=== PATIENT | female | born 1955 | race Caucasian/White ===

== ENCOUNTER → 2016-09-22 | Outpatient (CLI) | payer BC ==
[~2016-09-22] MED LIST: ATIVAN 0.50.5 MG/TAB PO; ATIVAN0.5 MG PO; CHILD'S CHEW1 CTB PO; CITRACAL PETITE1 TAB PO; COLACE 100100 MG/CAP PO; GOOD SENSE ASPI81 M1 PO; LEVAQUIN 5500 MG/TA1 PO; LISINOPRIL10 MG PO; LOVENOX60 MG/0.6 SC; MACRODANTIN50 MG/CA1 PO; MULTIPLE VITAMI1 TAB PO; NORCO 325 MG-51 TA1 PO; PROTONIX40 MG PO; TRIAMCINOLONE0.1% TOP; VALTREX1 GM PO; VERAPAMIL240 MG/TAB PO; VITAMIN C PO; WARFARIN SOD5 MG PO; ZOCOR5 MG PO; ZOFRAN ODT8 MG PO
== END ==
LOC: LAB 07:03
DX: Z51.81 Encounter for therapeutic drug level monitoring (principal); Z79.01 Long term (current) use of anticoagulants; I26.99 Other pulmonary embolism without acute cor pulmonale

== ENCOUNTER → 2016-10-20 | Outpatient (CLI) | payer BC | LOC: LAB 07:05 | DX: I26.99 Other pulmonary embolism without acute cor pulmonale (principal) ==

== ENCOUNTER → 2016-11-17 | Outpatient (CLI) | payer BC | LOC: LAB 07:09 | DX: Z51.81 Encounter for therapeutic drug level monitoring (principal); Z79.01 Long term (current) use of anticoagulants; I26.99 Other pulmonary embolism without acute cor pulmonale ==

== ENCOUNTER → 2016-12-15 | Outpatient (CLI) | payer BC ==
[2014-10-18 19:10] VITALS: BP 91/53
== END ==
LOC: LAB 06:58
DX: Z51.81 Encounter for therapeutic drug level monitoring (principal); Z79.01 Long term (current) use of anticoagulants; I26.99 Other pulmonary embolism without acute cor pulmonale

== ENCOUNTER → 2016-12-29 | Outpatient (CLI) | payer BC ==
[2014-10-18 19:10] VITALS: BP 91/53
== END ==
LOC: LAB 07:01
DX: Z51.81 Encounter for therapeutic drug level monitoring (principal); Z79.01 Long term (current) use of anticoagulants; I26.99 Other pulmonary embolism without acute cor pulmonale

== ENCOUNTER → 2017-01-12 | Outpatient (CLI) | payer BC ==
[2014-10-18 19:10] VITALS: BP 91/53
== END ==
LOC: LAB 07:25
DX: Z51.81 Encounter for therapeutic drug level monitoring (principal); Z79.01 Long term (current) use of anticoagulants; I26.99 Other pulmonary embolism without acute cor pulmonale

== ENCOUNTER → 2017-02-09 | Outpatient (CLI) | payer BC ==
[2014-10-18 19:10] VITALS: BP 91/53
== END ==
LOC: LAB 07:14
DX: Z51.81 Encounter for therapeutic drug level monitoring (principal); Z79.01 Long term (current) use of anticoagulants; I26.99 Other pulmonary embolism without acute cor pulmonale

== ENCOUNTER → 2017-03-09 | Outpatient (CLI) | payer BC ==
[2014-10-18 19:10] VITALS: BP 91/53
== END ==
LOC: LAB 07:11
DX: Z51.81 Encounter for therapeutic drug level monitoring (principal); Z79.01 Long term (current) use of anticoagulants; I26.99 Other pulmonary embolism without acute cor pulmonale

== ENCOUNTER → 2017-04-13 | Outpatient (CLI) | payer BC ==
[2014-10-18 19:10] VITALS: BP 91/53
== END ==
LOC: RAD 07:23 → LAB 07:23
DX: Z51.81 Encounter for therapeutic drug level monitoring (principal); Z79.01 Long term (current) use of anticoagulants; I26.99 Other pulmonary embolism without acute cor pulmonale; R07.81 Pleurodynia; W10.9XXA Fall (on) (from) unspecified stairs and steps, initial encounter

== ENCOUNTER → 2017-05-11 | Outpatient (CLI) | payer BC ==
[2014-10-18 19:10] VITALS: BP 91/53
== END ==
LOC: LAB 07:05
DX: I26.99 Other pulmonary embolism without acute cor pulmonale (principal)

== ENCOUNTER → 2017-06-15 | Outpatient (CLI) | payer BC ==
[2014-10-18 19:10] VITALS: BP 91/53
== END ==
LOC: LAB 07:07
DX: I26.99 Other pulmonary embolism without acute cor pulmonale (principal)

== ENCOUNTER → 2017-07-13 | Outpatient (CLI) | payer BC ==
[2014-10-18 19:10] VITALS: BP 91/53
[2017-07-13 07:29] LABS: PROTHROMBIN TIME 25.6 SECONDS (9.0-12.0)
== END ==
LOC: LAB 07:00
PROVIDERS: Family Medicine
DX: I26.99 Other pulmonary embolism without acute cor pulmonale (principal)

== ENCOUNTER → 2017-08-10 | Outpatient (CLI) | payer BC ==
[2014-10-18 19:10] VITALS: BP 91/53
[2017-08-10 07:24] LABS: PROTHROMBIN TIME 23.2 SECONDS (9.0-12.0)
== END ==
LOC: LAB 07:04
PROVIDERS: Family Medicine
DX: I26.99 Other pulmonary embolism without acute cor pulmonale (principal); Z91.040 Latex allergy status

== ENCOUNTER → 2017-09-07 | Outpatient (CLI) | payer BC ==
[2014-10-18 19:10] VITALS: BP 91/53
[2017-09-07 07:45] LABS: PROTHROMBIN TIME 23.3 SECONDS (9.0-12.0)
== END ==
LOC: LAB 07:04
PROVIDERS: Family Medicine
DX: I26.99 Other pulmonary embolism without acute cor pulmonale (principal)

== ENCOUNTER → 2017-10-12 | Outpatient (CLI) | payer BC ==
[2014-10-18 19:10] VITALS: BP 91/53
[2017-10-12 08:52] LABS: PROTHROMBIN TIME 26.3 SECONDS (9.0-12.0)
== END ==
LOC: LAB 07:03
PROVIDERS: Family Medicine
DX: I26.99 Other pulmonary embolism without acute cor pulmonale (principal)

== ENCOUNTER → 2017-11-09 | Outpatient (CLI) | payer BC ==
[2014-10-18 19:10] VITALS: BP 91/53
== END ==
LOC: LAB 07:15
PROVIDERS: Family Medicine
DX: I26.99 Other pulmonary embolism without acute cor pulmonale (principal)

== ENCOUNTER → 2017-12-09 | Outpatient (CLI) | payer BC ==
[2014-10-18 19:10] VITALS: BP 91/53
== END ==
LOC: LAB 07:08
PROVIDERS: Family Medicine
DX: I26.99 Other pulmonary embolism without acute cor pulmonale (principal)

== ENCOUNTER → 2018-01-04 | Outpatient (CLI) | payer BC ==
[2014-10-18 19:10] VITALS: BP 91/53
[2018-01-04 07:19] LABS: PROTHROMBIN TIME 21.1 SECONDS (9.0-12.0)
== END ==
LOC: LAB 06:55
PROVIDERS: Family Medicine
DX: I26.99 Other pulmonary embolism without acute cor pulmonale (principal)

== ENCOUNTER → 2018-02-01 | Outpatient (CLI) | payer BC ==
[2014-10-18 19:10] VITALS: BP 91/53
[2018-02-01 07:18] LABS: PROTHROMBIN TIME 21.8 SECONDS (9.0-12.0)
== END ==
LOC: LAB 06:57
PROVIDERS: Family Medicine
DX: I26.99 Other pulmonary embolism without acute cor pulmonale (principal)

== ENCOUNTER → 2018-03-08 | Outpatient (CLI) | payer BC ==
[2014-10-18 19:10] VITALS: BP 91/53
[2018-03-08 07:32] LABS: PROTHROMBIN TIME 22.4 SECONDS (9.0-12.0)
== END ==
LOC: LAB 06:56
PROVIDERS: Family Medicine
DX: I26.99 Other pulmonary embolism without acute cor pulmonale (principal)

== ENCOUNTER → 2018-04-05 | Outpatient (CLI) | payer BC ==
[2014-10-18 19:10] VITALS: BP 91/53
[2018-04-05 08:20] LABS: PROTHROMBIN TIME 28.6 SECONDS (9.0-12.0)
== END ==
LOC: LAB 07:07
PROVIDERS: Family Medicine
DX: I26.99 Other pulmonary embolism without acute cor pulmonale (principal)

== ENCOUNTER → 2018-06-07 | Outpatient (CLI) | payer BC ==
[2014-10-18 19:10] VITALS: BP 91/53
[2018-06-07 10:16] LABS: PROTHROMBIN TIME 27.6 SECONDS (9.0-12.0)
== END ==
LOC: LAB 07:00 → EDSTATUS 07:02
PROVIDERS: Family Medicine
DX: Z09 Encounter for follow-up examination after completed treatment for conditions other than malignant neoplasm (principal); Z86.711 Personal history of pulmonary embolism

== ENCOUNTER → 2018-06-30 | Outpatient (CLI) | payer BC ==
[2014-10-18 19:10] VITALS: BP 91/53
[2018-06-30 07:50] LABS: PROTHROMBIN TIME 14.6 SECONDS (9.0-12.0)
== END ==
LOC: LAB 07:03
PROVIDERS: Family Medicine
DX: Z86.711 Personal history of pulmonary embolism (principal)

== ENCOUNTER → 2018-07-05 | Outpatient (CLI) | payer BC ==
[2014-10-18 19:10] VITALS: BP 91/53
[2018-07-05 08:08] LABS: PROTHROMBIN TIME 23.5 SECONDS (9.0-12.0)
== END ==
LOC: LAB 07:04
PROVIDERS: Family Medicine
DX: Z09 Encounter for follow-up examination after completed treatment for conditions other than malignant neoplasm (principal); Z86.711 Personal history of pulmonary embolism

== ENCOUNTER → 2018-08-02 | Outpatient (CLI) | payer BC ==
[2014-10-18 19:10] VITALS: BP 91/53
== END ==
LOC: LAB 06:59
PROVIDERS: Family Medicine
DX: Z86.711 Personal history of pulmonary embolism (principal)

== ENCOUNTER → 2018-09-06 | Outpatient (CLI) | payer BC ==
[2014-10-18 19:10] VITALS: BP 91/53
[2018-09-06 07:53] LABS: PROTHROMBIN TIME 29.8 SECONDS (9.0-12.0)
== END ==
LOC: LAB 07:05 → EDSTATUS 07:06
PROVIDERS: Family Medicine
DX: Z86.711 Personal history of pulmonary embolism (principal)

== ENCOUNTER → 2018-10-06 | Outpatient (CLI) | payer BC ==
[2014-10-18 19:10] VITALS: BP 91/53
== END ==
LOC: LAB 07:05
PROVIDERS: Family Medicine
DX: Z86.711 Personal history of pulmonary embolism (principal)

== ENCOUNTER → 2018-10-13 | Outpatient (CLI) | payer BC ==
[2014-10-18 19:10] VITALS: BP 91/53
[2018-10-13 07:34] LABS: PROTHROMBIN TIME 24.1 SECONDS (9.0-12.0)
== END ==
LOC: LAB 07:05
PROVIDERS: Family Medicine
DX: Z09 Encounter for follow-up examination after completed treatment for conditions other than malignant neoplasm (principal); Z86.711 Personal history of pulmonary embolism

== ENCOUNTER → 2018-10-27 | Outpatient (CLI) | payer BC ==
[2014-10-18 19:10] VITALS: BP 91/53
[2018-10-27 09:28] LABS: PROTHROMBIN TIME 33.7 SECONDS (9.0-12.0)
== END ==
LOC: LAB 08:20
PROVIDERS: Family Medicine
DX: Z86.711 Personal history of pulmonary embolism (principal)

== ENCOUNTER → 2018-11-03 | Outpatient (CLI) | payer BC ==
[2014-10-18 19:10] VITALS: BP 91/53
[2018-11-03 08:50] LABS: PROTHROMBIN TIME 42.2 SECONDS (9.0-12.0)
== END ==
LOC: LAB 07:48
PROVIDERS: Family Medicine
DX: Z86.711 Personal history of pulmonary embolism (principal); E78.1 Pure hyperglyceridemia

== ENCOUNTER → 2018-11-17 | Outpatient (CLI) | payer BC ==
[2014-10-18 19:10] VITALS: BP 91/53
[2018-11-17 08:26] LABS: PROTHROMBIN TIME 26.2 SECONDS (9.0-12.0)
== END ==
LOC: LAB 07:31
PROVIDERS: Family Medicine
DX: E78.1 Pure hyperglyceridemia (principal); Z86.711 Personal history of pulmonary embolism

== ENCOUNTER → 2018-12-15 | Outpatient (CLI) | payer BC ==
[2014-10-18 19:10] VITALS: BP 91/53
[2018-12-15 07:27] LABS: PROTHROMBIN TIME 23.1 SECONDS (9.0-12.0)
== END ==
LOC: LAB 07:07
PROVIDERS: Family Medicine
DX: Z86.711 Personal history of pulmonary embolism (principal)

== ENCOUNTER → 2019-02-07 | Outpatient (CLI) | payer BC ==
[2014-10-18 19:10] VITALS: BP 91/53
[2019-02-07 09:14] LABS: PROTHROMBIN TIME 25.6 SECONDS (9.0-12.0)
== END ==
LOC: LAB 07:03
PROVIDERS: Family Medicine
DX: E78.00 Pure hypercholesterolemia, unspecified (principal); Z86.711 Personal history of pulmonary embolism

== ENCOUNTER → 2019-03-14 | Outpatient (CLI) | payer BC ==
[2014-10-18 19:10] VITALS: BP 91/53
[2019-03-14 08:43] LABS: PROTHROMBIN TIME 47.2 SECONDS (9.0-12.0)
== END ==
LOC: LAB 07:07
PROVIDERS: Family Medicine
DX: Z86.711 Personal history of pulmonary embolism (principal)

== ENCOUNTER → 2019-03-25 | Outpatient (CLI) | payer BC ==
[2014-10-18 19:10] VITALS: BP 91/53
[2019-03-25 07:53] LABS: PROTHROMBIN TIME 18.4 SECONDS (9.0-12.0)
== END ==
LOC: LAB 07:08
PROVIDERS: Family Medicine
DX: E78.00 Pure hypercholesterolemia, unspecified (principal)

== ENCOUNTER → 2019-04-06 | Outpatient (CLI) | payer BC ==
[2014-10-18 19:10] VITALS: BP 91/53
[2019-04-06 07:25] LABS: PROTHROMBIN TIME 27.4 SECONDS (9.0-12.0)
== END ==
LOC: LAB 06:59
PROVIDERS: Family Medicine
DX: E78.1 Pure hyperglyceridemia (principal); Z86.711 Personal history of pulmonary embolism

== ENCOUNTER → 2019-05-04 | Outpatient (CLI) | payer BC ==
[2014-10-18 19:10] VITALS: BP 91/53
[2019-05-04 08:42] LABS: PROTHROMBIN TIME 20.7 SECONDS (9.0-12.0)
== END ==
LOC: LAB 07:06
PROVIDERS: Family Medicine
DX: E78.1 Pure hyperglyceridemia (principal); Z86.711 Personal history of pulmonary embolism

== ENCOUNTER → 2019-06-06 | Outpatient (CLI) | payer BC ==
[2014-10-18 19:10] VITALS: BP 91/53
[2019-06-06 08:00] LABS: PROTHROMBIN TIME 18.4 SECONDS (9.0-12.0)
== END ==
LOC: LAB 07:06
PROVIDERS: Family Medicine
DX: Z86.711 Personal history of pulmonary embolism (principal)

== ENCOUNTER → 2019-06-20 | Outpatient (CLI) | payer BC ==
[2014-10-18 19:10] VITALS: BP 91/53
[2019-06-20 07:30] LABS: PROTHROMBIN TIME 19.9 SECONDS (9.0-12.0)
== END ==
LOC: LAB 07:13
PROVIDERS: Family Medicine
DX: Z86.711 Personal history of pulmonary embolism (principal)

== ENCOUNTER → 2019-07-04 | Outpatient (CLI) | payer BC ==
[2014-10-18 19:10] VITALS: BP 91/53
[2019-07-04 10:17] LABS: PROTHROMBIN TIME 17.3 SECONDS (9.0-12.0)
== END ==
LOC: LAB 09:57
PROVIDERS: Family Medicine
DX: Z86.711 Personal history of pulmonary embolism (principal)

== ENCOUNTER → 2019-07-19 | Outpatient (CLI) | payer BC ==
[2014-10-18 19:10] VITALS: BP 91/53
[2019-07-19 07:31] LABS: PROTHROMBIN TIME 20.5 SECONDS (9.0-12.0)
== END ==
LOC: LAB 07:02
PROVIDERS: Family Medicine
DX: Z86.711 Personal history of pulmonary embolism (principal)

== ENCOUNTER → 2019-07-25 | Outpatient (CLI) | payer BC ==
[2014-10-18 19:10] VITALS: BP 91/53
== END ==
LOC: RAD 06:52
DX: I10 Essential (primary) hypertension (principal); I65.29 Occlusion and stenosis of unspecified carotid artery

== ENCOUNTER → 2019-08-17 | Outpatient (CLI) | payer BC ==
[2014-10-18 19:10] VITALS: BP 91/53
[2019-08-17 07:31] LABS: PROTHROMBIN TIME 20.3 SECONDS (9.0-12.0)
== END ==
LOC: LAB 07:00
PROVIDERS: Family Medicine
DX: Z86.711 Personal history of pulmonary embolism (principal)

== ENCOUNTER → 2019-09-14 | Outpatient (CLI) | payer BC ==
[2014-10-18 19:10] VITALS: BP 91/53
[2019-09-14 08:29] LABS: PROTHROMBIN TIME 25.5 SECONDS (9.0-12.0)
== END ==
LOC: LAB 07:00
PROVIDERS: Family Medicine
DX: Z86.711 Personal history of pulmonary embolism (principal)

== ENCOUNTER → 2019-10-10 | Outpatient (CLI) | payer BC ==
[2014-10-18 19:10] VITALS: BP 91/53
== END ==
LOC: LAB 07:01
PROVIDERS: Family Medicine
DX: Z86.711 Personal history of pulmonary embolism (principal)

== ENCOUNTER → 2019-11-07 | Outpatient (CLI) | payer BC ==
[2014-10-18 19:10] VITALS: BP 91/53
[2019-11-07 07:49] LABS: PROTHROMBIN TIME 24.1 SECONDS (9.0-12.0)
== END ==
LOC: LAB 07:04
PROVIDERS: Family Medicine
DX: Z86.711 Personal history of pulmonary embolism (principal)

== ENCOUNTER → 2019-12-05 | Outpatient (CLI) | payer BC ==
[2014-10-18 19:10] VITALS: BP 91/53
[2019-12-05 08:41] LABS: PROTHROMBIN TIME 26.1 SECONDS (9.0-12.0)
== END ==
LOC: LAB 07:40
PROVIDERS: Family Medicine
DX: Z86.711 Personal history of pulmonary embolism (principal)

== ENCOUNTER → 2020-01-02 | Outpatient (CLI) | payer BC ==
[2014-10-18 19:10] VITALS: BP 91/53
[2020-01-02 07:52] LABS: PROTHROMBIN TIME 33.1 SECONDS (9.0-12.0)
== END ==
LOC: LAB 07:03
PROVIDERS: Family Medicine
DX: Z86.711 Personal history of pulmonary embolism (principal)

== ENCOUNTER → 2020-01-16 | Outpatient (CLI) | payer BC ==
[2014-10-18 19:10] VITALS: BP 91/53
[2020-01-16 07:45] LABS: PROTHROMBIN TIME 20.6 SECONDS (9.0-12.0)
== END ==
LOC: LAB 06:45
PROVIDERS: Family Medicine
DX: Z86.711 Personal history of pulmonary embolism (principal)

== ENCOUNTER → 2020-02-13 | Outpatient (CLI) | payer BC ==
[2014-10-18 19:10] VITALS: BP 91/53
[2020-02-13 07:48] LABS: PROTHROMBIN TIME 22.1 SECONDS (9.0-12.0)
== END ==
LOC: LAB 07:05
PROVIDERS: Family Medicine
DX: Z86.711 Personal history of pulmonary embolism (principal)

== ENCOUNTER → 2020-03-12 | Outpatient (CLI) | payer BC ==
[2014-10-18 19:10] VITALS: BP 91/53
[2020-03-12 10:07] LABS: PROTHROMBIN TIME 17.9 SECONDS (9.0-12.0)
== END ==
LOC: LAB 07:43
PROVIDERS: Family Medicine
DX: Z86.711 Personal history of pulmonary embolism (principal)

== ENCOUNTER → 2020-03-26 | Outpatient (CLI) | payer BC ==
[2014-10-18 19:10] VITALS: BP 91/53
[2020-03-26 07:55] LABS: PROTHROMBIN TIME 20.5 SECONDS (9.0-12.0)
== END ==
LOC: LAB 07:07
PROVIDERS: Family Medicine
DX: Z86.711 Personal history of pulmonary embolism (principal)

== ENCOUNTER → 2020-04-12 | Outpatient (CLI) | payer BC ==
[2014-10-18 19:10] VITALS: BP 91/53
== END ==
LOC: RAD 09:39 → MAMMO 10:00 → RAD 10:00
DX: M81.0 Age-related osteoporosis without current pathological fracture (principal); S52.125D Nondisplaced fracture of head of left radius, subsequent encounter for closed fracture with routine healing; Z78.0 Asymptomatic menopausal state

== ENCOUNTER → 2020-04-23 | Outpatient (CLI) | payer BC ==
[2014-10-18 19:10] VITALS: BP 91/53
[2020-04-23 08:13] LABS: PROTHROMBIN TIME 22.1 SECONDS (9.0-12.0)
== END ==
LOC: LAB 07:16
PROVIDERS: Family Medicine
DX: Z86.711 Personal history of pulmonary embolism (principal)

== ENCOUNTER → 2020-05-21 | Outpatient (CLI) | payer BC ==
[2014-10-18 19:10] VITALS: BP 91/53
[2020-05-21 07:26] LABS: PROTHROMBIN TIME 17.7 SECONDS (9.0-12.0)
== END ==
LOC: LAB 07:00
PROVIDERS: Family Medicine
DX: I26.99 Other pulmonary embolism without acute cor pulmonale (principal)

== ENCOUNTER → 2020-06-04 | Outpatient (CLI) | payer BC ==
[2014-10-18 19:10] VITALS: BP 91/53
[2020-06-04 09:06] LABS: PROTHROMBIN TIME 21.8 SECONDS (9.0-12.0)
== END ==
LOC: LAB 07:02
PROVIDERS: Family Medicine
DX: I26.99 Other pulmonary embolism without acute cor pulmonale (principal)

== ENCOUNTER 2020-06-25 22:07 | Emergency (ER) | payer BC ==
[~2020-06-25] VITALS: Ht 170.2 cm; Wt 59.9 kg
[2020-06-25] MEDS ORDERED: ZETIA10 M1 PO (22:21)
[2020-06-25] MEDS ORDERED: OMEGA 3-6-9 CO400 MG PO (22:22)
[2020-06-25 22:34] LABS: HEMATOCRIT 40.1 % (37.0-47.0); HEMOGLOBIN 13.5 g/dL (12.5-16.0); MEAN CELL VOLUME 87 fl (78-100); MEAN CORPUSCULAR HEMOGLOBIN 29 pg (27-31); MEAN CORPUSCULAR HGB CONC 34 g/dL (33-37); MEAN PLATELET VOLUME 9.1 fl (7.4-10.4); PLATELET COUNT 224 K/mm3 (130-400); RED BLOOD COUNT 4.59 M/mm3 (4.10-5.30); RED CELL DISTRIBUTION WIDTH 12.7 % (11.5-14.5); WHITE BLOOD COUNT 4.2 K/mm3 (4.8-10.8)
[2020-06-25 22:51] LABS: ALBUMIN 3.9 g/dL (3.4-4.8); POTASSIUM 3.9 mmol/L (3.5-5.1)
[2020-06-25 22:52] LABS: CALCIUM 8.7 mg/dL (8.3-10.5)
[2020-06-25 22:53] LABS: TOTAL PROTEIN 7.2 g/dL (6.2-8.1)
[2020-06-25 22:55] LABS: TOTAL BILIRUBIN 0.4 mg/dL (0.2-1.2)
[2020-06-25 23:02] LABS: PARTIAL THROMBOPLASTIN TIME 33.8 SECONDS (21.0-32.0); PROTHROMBIN TIME 23.9 SECONDS (9.0-12.0)
[2020-06-25 23:14] LABS: LYMPHOCYTE 4 % (20-51); MONOCYTE 14 % (3-10); NEUTROPHILS 77 % (42-75)
[2020-06-26] MEDS ORDERED: NORCO 325 MG-51 TA1 PO (01:04)
[2020-06-26] MEDS ORDERED: ZOFRAN ODT4 MG PO (01:04)
[2020-06-26 01:52] LABS: URINE WBC 0 /hpf (0-3)
[2020-06-26 01:59] LABS: URINE APPEARANCE HAZY; URINE BILIRUBIN NEGATIVE (NEGATIVE); URINE BLOOD 250 ery/uL (NEGATIVE); URINE COLOR YELLOW; URINE GLUCOSE NEGATIVE (NEGATIVE); URINE KETONE 1+ (NEGATIVE); URINE LEUKOCYTE ESTERASE NEGATIVE (NEGATIVE); URINE NITRATE NEGATIVE (NEGATIVE); URINE PROTEIN(semi-quant) TRACE mg/dL (NEGATIVE); URINE UROBILINOGEN NORMAL (NORMAL)
[2020-06-26 03:02] VITALS: BP 137/78
== END 2020-06-26 03:02 | disposition home or self-care (01) ==
LOC: ED 22:07
PROVIDERS: Nurse Practitioner
DX: U07.1 COVID-19 (principal); R11.2 Nausea with vomiting, unspecified; I12.9 Hypertensive chronic kidney disease with stage 1 through stage 4 chronic kidney disease, or unspecified chronic kidney disease; N18.31 Chronic kidney disease, stage 3a; Z86.711 Personal history of pulmonary embolism; Z86.79 Personal history of other diseases of the circulatory system; Z90.89 Acquired absence of other organs; Z91.040 Latex allergy status; Z79.01 Long term (current) use of anticoagulants
CPT/HCPCS: J2405; J2550; J3010; J7030

== ENCOUNTER → 2020-07-06 | Outpatient (CLI) | payer BC ==
[2020-07-03 23:27] VITALS: BP 140/73
[~2020-07-06] MED LIST changes: +ALENDRONATE SOD35 M1 PO; -CITRACAL PETITE1 TAB PO; -COLACE 100100 MG/CAP PO; +COLACE100 M1 PO; -LISINOPRIL10 MG PO; +OMEGA 3-6-9 CO400 MG PO; +ONDANSETRON ODT8 MG PO; +PHENERGAN 25 TA25 MG PO; +VERAPAMIL240 MG PO; +VITAMIN D375 MCG PO; -WARFARIN SOD5 MG PO; +WARFARIN SODIUM4 MG PO; +ZESTRIL20 M1 PO; +ZETIA10 M1 PO; +ZOFRAN ODT4 MG PO
[2020-07-06 10:05] LABS: URINE COLOR YELLOW
[2020-07-06 10:06] LABS: URINE APPEARANCE CLOUDY; URINE BILIRUBIN NEGATIVE (NEGATIVE); URINE BLOOD 250 ery/uL (NEGATIVE); URINE GLUCOSE NEGATIVE (NEGATIVE); URINE KETONE NEGATIVE (NEGATIVE); URINE LEUKOCYTE ESTERASE 2+ (NEGATIVE); URINE NITRATE POSITIVE (NEGATIVE); URINE PROTEIN(semi-quant) TRACE mg/dL (NEGATIVE); URINE UROBILINOGEN NORMAL (NORMAL); URINE WBC >50 /hpf (0-3)
[2020-07-06 10:07] LABS: URINE MUCUS PRESENT (NOT PRESENT)
== END ==
LOC: LAB 08:48
PROVIDERS: Family Medicine
DX: R30.9 Painful micturition, unspecified (principal); R35.0 Frequency of micturition

== ENCOUNTER → 2020-07-09 | Outpatient (CLI) | payer BC ==
[2020-07-03 23:27] VITALS: BP 140/73
[2020-07-09 08:50] LABS: PROTHROMBIN TIME > 120.0 SECONDS (9.0-12.0)
== END ==
LOC: LAB 07:13
PROVIDERS: Family Medicine
DX: E87.1 Hypo-osmolality and hyponatremia (principal); I12.9 Hypertensive chronic kidney disease with stage 1 through stage 4 chronic kidney disease, or unspecified chronic kidney disease; N18.2 Chronic kidney disease, stage 2 (mild)

== ENCOUNTER → 2020-07-10 | Outpatient (CLI) | payer BC ==
[2020-07-03 23:27] VITALS: BP 140/73
== END ==
LOC: LAB 07:53
PROVIDERS: Family Medicine
DX: I26.99 Other pulmonary embolism without acute cor pulmonale (principal)

== ENCOUNTER → 2020-07-11 | Outpatient (CLI) | payer BC ==
[2020-07-03 23:27] VITALS: BP 140/73
== END ==
LOC: RAD 16:01
DX: K56.41 Fecal impaction (principal)

== ENCOUNTER → 2020-07-13 | Outpatient (CLI) | payer BC ==
[2020-07-03 23:27] VITALS: BP 140/73
[2020-07-13 07:58] LABS: ALBUMIN 4.1 g/dL (3.4-4.8)
[2020-07-13 08:01] LABS: TOTAL PROTEIN 7.3 g/dL (6.2-8.1)
[2020-07-13 08:03] LABS: TOTAL BILIRUBIN 0.6 mg/dL (0.2-1.2)
[2020-07-13 08:06] LABS: DIRECT BILIRUBIN 0.3 mg/dL (0.0-0.5)
== END ==
LOC: LAB 07:04
PROVIDERS: Family Medicine
DX: E78.00 Pure hypercholesterolemia, unspecified (principal)

== ENCOUNTER 2020-07-14 12:50 | Emergency (ER) | payer BC ==
[~2020-07-14] VITALS: Ht 170.2 cm; Wt 56.4 kg
[2020-07-14 14:00] LABS: HEMATOCRIT 38.2 % (37.0-47.0); HEMOGLOBIN 13.4 g/dL (12.5-16.0); MEAN CELL VOLUME 83 fl (78-100); MEAN CORPUSCULAR HEMOGLOBIN 29 pg (27-31); MEAN CORPUSCULAR HGB CONC 35 g/dL (33-37); MEAN PLATELET VOLUME 8.4 fl (7.4-10.4); MONO # 0.8 (0.20-0.80); NEU # 5.7 (1.40-6.50); PLATELET COUNT 440 K/mm3 (130-400); RED CELL DISTRIBUTION WIDTH 12.1 % (11.5-14.5); WHITE BLOOD COUNT 7.6 K/mm3 (4.8-10.8)
[2020-07-14 14:22] LABS: PROTHROMBIN TIME 17.2 SECONDS (9.0-12.0)
[2020-07-14 14:23] LABS: POTASSIUM 4.5 mmol/L (3.5-5.1)
[2020-07-14 14:24] LABS: CALCIUM 10.6 mg/dL (8.3-10.5)
[2020-07-14 14:49] LABS: URINE APPEARANCE CLEAR; URINE BILIRUBIN NEGATIVE (NEGATIVE); URINE COLOR STRAW; URINE GLUCOSE NEGATIVE (NEGATIVE); URINE KETONE NEGATIVE (NEGATIVE); URINE PROTEIN(semi-quant) NEGATIVE (NEGATIVE); URINE UROBILINOGEN NORMAL (NORMAL)
[2020-07-14 14:50] LABS: URINE BLOOD 50 ery/uL (NEGATIVE); URINE LEUKOCYTE ESTERASE NEGATIVE (NEGATIVE); URINE NITRATE NEGATIVE (NEGATIVE); URINE WBC 0-1 /hpf (0-3)
[2020-07-14 17:03] VITALS: BP 160/89
== END 2020-07-14 17:26 | disposition home or self-care (01) ==
LOC: ED 12:50
PROVIDERS: Family Medicine
DX: R00.0 Tachycardia, unspecified (principal); E86.9 Volume depletion, unspecified; Z86.718 Personal history of other venous thrombosis and embolism; Z86.711 Personal history of pulmonary embolism; Z86.79 Personal history of other diseases of the circulatory system; Z86.19 Personal history of other infectious and parasitic diseases; Z88.2 Allergy status to sulfonamides; Z79.01 Long term (current) use of anticoagulants
CPT/HCPCS: J7030

== ENCOUNTER → 2020-07-23 | Outpatient (CLI) | payer BC ==
[2020-07-14 17:03] VITALS: BP 160/89
[2020-07-23 13:02] LABS: POTASSIUM 4.4 mmol/L (3.5-5.1)
[2020-07-23 13:03] LABS: CALCIUM 10.7 mg/dL (8.3-10.5)
[2020-07-23 13:07] LABS: PROTHROMBIN TIME 15.7 SECONDS (9.0-12.0)
== END ==
LOC: LAB 11:20 → RAD 11:20
PROVIDERS: Family Medicine
DX: K56.41 Fecal impaction (principal); E87.1 Hypo-osmolality and hyponatremia; Z86.711 Personal history of pulmonary embolism

== ENCOUNTER → 2020-07-27 | Outpatient (CLI) | payer BC ==
[2020-07-14 17:03] VITALS: BP 160/89
[2020-07-27 07:40] LABS: PROTHROMBIN TIME 15.3 SECONDS (9.0-12.0)
== END ==
LOC: LAB 06:54
PROVIDERS: Family Medicine
DX: Z86.711 Personal history of pulmonary embolism (principal)

== ENCOUNTER → 2020-08-02 | Outpatient (CLI) | payer BC ==
[2020-07-14 17:03] VITALS: BP 160/89
[2020-08-02 07:30] LABS: PROTHROMBIN TIME 21.9 SECONDS (9.0-12.0)
== END ==
LOC: LAB 07:01
PROVIDERS: Family Medicine
DX: Z86.711 Personal history of pulmonary embolism (principal)

== ENCOUNTER → 2020-08-09 | Outpatient (CLI) | payer BC ==
[2020-07-14 17:03] VITALS: BP 160/89
[2020-08-09 08:14] LABS: PROTHROMBIN TIME 19.2 SECONDS (9.0-12.0)
== END ==
LOC: LAB 06:46
PROVIDERS: Family Medicine
DX: Z86.711 Personal history of pulmonary embolism (principal)

== ENCOUNTER → 2020-08-23 | Outpatient (CLI) | payer BC ==
[2020-08-23 07:32] LABS: PROTHROMBIN TIME 18.4 SECONDS (9.0-12.0)
== END ==
LOC: LAB 07:05
PROVIDERS: Family Medicine
DX: Z86.711 Personal history of pulmonary embolism (principal)

== ENCOUNTER → 2020-09-17 | Outpatient (CLI) | payer BC ==
[2020-09-17 09:59] LABS: PROTHROMBIN TIME 15.5 SECONDS (9.0-12.0)
== END ==
LOC: LAB 08:55
PROVIDERS: Family Medicine
DX: Z86.711 Personal history of pulmonary embolism (principal)

== ENCOUNTER → 2020-09-26 | Outpatient (CLI) | payer BC ==
[2020-09-26 09:28] LABS: POTASSIUM 4.1 mmol/L (3.5-5.1)
== END ==
LOC: LAB 08:54
PROVIDERS: Family Medicine
DX: E87.1 Hypo-osmolality and hyponatremia (principal)

== ENCOUNTER → 2020-10-10 | Outpatient (CLI) | payer BC ==
[2020-10-10 08:40] LABS: PROTHROMBIN TIME 17.9 SECONDS (9.0-12.0)
== END ==
LOC: LAB 07:10
PROVIDERS: Family Medicine
DX: E87.1 Hypo-osmolality and hyponatremia (principal)

== ENCOUNTER → 2020-10-24 | Outpatient (CLI) | payer BC ==
[2020-10-25 04:21] LABS: PROTHROMBIN TIME 24.7 SECONDS (9.0-12.0)
== END ==
LOC: LAB 07:08
PROVIDERS: Family Medicine
DX: E87.1 Hypo-osmolality and hyponatremia (principal)

== ENCOUNTER → 2020-11-26 | Outpatient (CLI) | payer BC ==
[2020-11-26 08:50] LABS: PROTHROMBIN TIME 22.8 SECONDS (9.0-12.0)
== END ==
LOC: LAB 07:05
PROVIDERS: Family Medicine
DX: E87.1 Hypo-osmolality and hyponatremia (principal)

== ENCOUNTER → 2020-12-24 | Outpatient (CLI) | payer BC ==
[2020-12-24 07:49] LABS: PROTHROMBIN TIME 26.1 SECONDS (9.0-12.0)
== END ==
LOC: LAB 07:00
PROVIDERS: Family Medicine
DX: E87.1 Hypo-osmolality and hyponatremia (principal)

== ENCOUNTER → 2021-01-21 | Outpatient (CLI) | payer BC ==
[2021-01-21 07:33] LABS: PROTHROMBIN TIME 24.8 SECONDS (9.0-12.0)
== END ==
LOC: LAB 07:10
PROVIDERS: Family Medicine
DX: E87.1 Hypo-osmolality and hyponatremia (principal)

== ENCOUNTER → 2021-02-18 | Outpatient (CLI) | payer BC ==
[2021-02-18 09:19] LABS: PROTHROMBIN TIME 24.6 SECONDS (9.0-12.0)
== END ==
LOC: LAB 07:09
PROVIDERS: Family Medicine
DX: E87.1 Hypo-osmolality and hyponatremia (principal)

== ENCOUNTER → 2021-03-25 | Outpatient (CLI) | payer BC | LOC: LAB 07:17 | PROVIDERS: Family Medicine | DX: E87.1 Hypo-osmolality and hyponatremia (principal) ==

== ENCOUNTER → 2021-04-29 | Outpatient (CLI) | payer BC ==
[2021-04-29 07:45] LABS: PROTHROMBIN TIME 27.7 SECONDS (9.0-12.0)
== END ==
LOC: LAB 07:13
PROVIDERS: Family Medicine
DX: E87.1 Hypo-osmolality and hyponatremia (principal)

== ENCOUNTER → 2021-05-27 | Outpatient (CLI) | payer BC ==
[2021-05-27 08:08] LABS: PROTHROMBIN TIME 23.3 SECONDS (9.0-12.0)
== END ==
LOC: LAB 06:43
PROVIDERS: Family Medicine
DX: E87.1 Hypo-osmolality and hyponatremia (principal)

== ENCOUNTER → 2021-06-26 | Outpatient (CLI) | payer BC ==
[2021-06-26 07:55] LABS: PROTHROMBIN TIME 32.3 SECONDS (9.0-12.0)
== END ==
LOC: LAB 07:03
PROVIDERS: Family Medicine
DX: E87.1 Hypo-osmolality and hyponatremia (principal)

== ENCOUNTER → 2021-07-10 | Outpatient (CLI) | payer BC ==
[2021-07-10 08:12] LABS: PROTHROMBIN TIME 26.6 SECONDS (9.0-12.0)
== END ==
LOC: LAB 06:57
PROVIDERS: Family Medicine
DX: E87.1 Hypo-osmolality and hyponatremia (principal)

== ENCOUNTER → 2021-08-12 | Outpatient (CLI) | payer BC ==
[2021-08-12 08:16] LABS: PROTHROMBIN TIME 34.4 SECONDS (9.0-12.0)
== END ==
LOC: LAB 07:51
PROVIDERS: Family Medicine
DX: E87.1 Hypo-osmolality and hyponatremia (principal)

== ENCOUNTER → 2021-08-22 | Outpatient (CLI) | payer BC ==
[2021-08-22 08:12] LABS: PROTHROMBIN TIME 24.2 SECONDS (9.0-12.0)
== END ==
LOC: LAB 07:02
PROVIDERS: Family Medicine
DX: E87.1 Hypo-osmolality and hyponatremia (principal)

== ENCOUNTER → 2021-09-23 | Outpatient (CLI) | payer BC | LOC: LAB 07:10 | PROVIDERS: Family Medicine | DX: E87.1 Hypo-osmolality and hyponatremia (principal) ==

== ENCOUNTER → 2021-10-21 | Outpatient (CLI) | payer BC | LOC: LAB 07:04 | PROVIDERS: Family Medicine | DX: Z86.711 Personal history of pulmonary embolism (principal) ==

== ENCOUNTER → 2021-11-25 | Outpatient (CLI) | payer BC ==
[2021-11-25 07:50] LABS: PROTHROMBIN TIME 25.5 SECONDS (9.0-12.0)
== END ==
LOC: LAB 07:08
PROVIDERS: Family Medicine
DX: Z86.711 Personal history of pulmonary embolism (principal)

== ENCOUNTER → 2021-11-27 | Outpatient (CLI) | payer BC | LOC: CARDREHAB 10-28 10:40 | DX: Z13.6 Encounter for screening for cardiovascular disorders (principal); E78.5 Hyperlipidemia, unspecified; I10 Essential (primary) hypertension ==

== ENCOUNTER → 2021-12-23 | Outpatient (CLI) | payer BC ==
[2021-12-23 09:18] LABS: PROTHROMBIN TIME 21.6 SECONDS (9.0-12.0)
== END ==
LOC: LAB 07:00
PROVIDERS: Family Medicine
DX: Z86.711 Personal history of pulmonary embolism (principal)

== ENCOUNTER → 2022-01-20 | Outpatient (CLI) | payer BC ==
[2022-01-20 08:10] LABS: PROTHROMBIN TIME 32.2 SECONDS (9.0-12.0)
== END ==
LOC: LAB 07:01
PROVIDERS: Family Medicine
DX: Z86.711 Personal history of pulmonary embolism (principal)

== ENCOUNTER → 2022-02-12 | Outpatient (CLI) | payer BC | END | disposition still patient (30) | LOC: LAB 07:08 | PROVIDERS: Family Medicine | DX: Z86.711 Personal history of pulmonary embolism (principal) ==

== ENCOUNTER → 2022-03-10 | Outpatient (CLI) | payer BC ==
[2022-03-10 13:55] LABS: PROTHROMBIN TIME 18.8 SECONDS (9.0-12.0)
== END ==
LOC: LAB 07:06
PROVIDERS: Family Medicine
DX: Z86.711 Personal history of pulmonary embolism (principal)

== ENCOUNTER → 2022-03-24 | Outpatient (CLI) | payer BC ==
[2022-03-24 08:58] LABS: PROTHROMBIN TIME 22.3 SECONDS (9.0-12.0)
== END ==
LOC: LAB 07:56
PROVIDERS: Family Medicine
DX: Z86.711 Personal history of pulmonary embolism (principal)

== ENCOUNTER → 2022-04-15 | Outpatient (CLI) | payer BC | LOC: RAD 09:40 → MAMMO 10:00 | DX: M81.0 Age-related osteoporosis without current pathological fracture (principal); Z78.0 Asymptomatic menopausal state ==

== ENCOUNTER → 2022-04-21 | Outpatient (CLI) | payer BC ==
[2022-04-21 08:46] LABS: PROTHROMBIN TIME 25.8 SECONDS (9.0-12.0)
== END ==
LOC: LAB 08:00
PROVIDERS: Family Medicine
DX: Z86.711 Personal history of pulmonary embolism (principal)

== ENCOUNTER → 2022-05-26 | Outpatient (CLI) | payer MEDICARE ==
[2022-05-26 08:37] LABS: PROTHROMBIN TIME 20.6 SECONDS (9.0-12.0)
== END ==
LOC: LAB 07:52
PROVIDERS: Family Medicine
DX: Z86.711 Personal history of pulmonary embolism (principal)

== ENCOUNTER → 2022-09-22 | Outpatient (CLI) | payer MEDICARE ==
[2022-09-22 11:27] LABS: PROTHROMBIN TIME 23.3 SECONDS (9.0-12.0)
== END ==
LOC: LAB 09:27
PROVIDERS: Family Medicine
DX: Z86.711 Personal history of pulmonary embolism (principal)

== ENCOUNTER → 2023-06-22 | Outpatient (CLI) | payer MEDICARE ==
[2023-06-22 08:29] LABS: PROTHROMBIN TIME 20.1 SECONDS (9.0-12.0)
== END ==
LOC: LAB 07:35
PROVIDERS: Family Medicine
DX: Z86.711 Personal history of pulmonary embolism (principal)

== ENCOUNTER → 2023-06-26 | Outpatient (CLI) | payer MEDICARE ==
[2023-06-26 10:15] LABS: CALCIUM 10.7 mg/dL (8.3-10.5)
[2023-06-26 21:28] LABS: CREATININE OTHER SOURCE 55 mg/dL (63-166)
== END ==
LOC: LAB 09:44
PROVIDERS: Family Medicine
DX: I10 Essential (primary) hypertension (principal)

== ENCOUNTER → 2023-07-29 | Outpatient (CLI) | payer MEDICARE | LOC: RAD 09:38 → MAMMO 10:00 | DX: Z13.820 Encounter for screening for osteoporosis (principal); M81.0 Age-related osteoporosis without current pathological fracture ==

== ENCOUNTER → 2023-09-01 | Outpatient (CLI) | payer MEDICARE ==
[2023-09-01 10:14] LABS: PROTHROMBIN TIME 22.9 SECONDS (9.0-12.0)
== END ==
LOC: LAB 09:39
PROVIDERS: Family Medicine
DX: Z51.81 Encounter for therapeutic drug level monitoring (principal)

== ENCOUNTER → 2023-09-03 | Outpatient (CLI) | payer MEDICARE | LOC: LAB 09:14 | DX: N39.0 Urinary tract infection, site not specified (principal) ==

== ENCOUNTER → 2023-09-25 | Outpatient (CLI) | payer MEDICARE ==
[2023-09-25 09:57] LABS: CALCIUM 10.5 mg/dL (8.3-10.5)
[2023-09-25 10:12] LABS: PROTHROMBIN TIME 22.1 SECONDS (9.0-12.0)
== END ==
LOC: LAB 09:32
PROVIDERS: Family Medicine
DX: I10 Essential (primary) hypertension (principal); Z86.711 Personal history of pulmonary embolism

== ENCOUNTER → 2023-10-26 | Outpatient (CLI) | payer MEDICARE | LOC: LAB 09:12 | PROVIDERS: Family Medicine | DX: Z86.711 Personal history of pulmonary embolism (principal) ==

== ENCOUNTER → 2023-11-02 | Outpatient (CLI) | payer MEDICARE ==
[2023-11-02 09:54] LABS: PROTHROMBIN TIME 23.2 SECONDS (9.0-12.0)
== END ==
LOC: LAB 07:41
PROVIDERS: Family Medicine
DX: Z86.711 Personal history of pulmonary embolism (principal)

== ENCOUNTER → 2023-11-23 | Outpatient (CLI) | payer MEDICARE | LOC: LAB 08:44 | DX: E78.2 Mixed hyperlipidemia (principal) ==

== ENCOUNTER → 2024-01-29 | Outpatient (CLI) | payer MEDICARE ==
[2024-03-19 11:10] LABS: PROTHROMBIN TIME 39.5 SECONDS (9.0-12.0)
== END ==
LOC: LAB 08:56
PROVIDERS: Family Medicine
DX: Z86.711 Personal history of pulmonary embolism (principal)

== ENCOUNTER → 2024-02-24 | Outpatient (CLI) | payer MEDICARE ==
[2024-02-24 10:04] LABS: CALCIUM 10.1 mg/dL (8.3-10.5)
== END ==
LOC: LAB 09:50
PROVIDERS: Family Medicine
DX: I10 Essential (primary) hypertension (principal)

== ENCOUNTER → 2024-03-07 | Outpatient (CLI) | payer MEDICARE ==
[2024-03-07 08:45] LABS: PROTHROMBIN TIME 21.2 SECONDS (9.0-12.0)
== END ==
LOC: LAB 08:05
PROVIDERS: Family Medicine
DX: Z86.711 Personal history of pulmonary embolism (principal)

== ENCOUNTER → 2024-05-04 | Outpatient (CLI) | payer MEDICARE ==
[2024-05-04 09:03] LABS: PROTHROMBIN TIME 27.1 SECONDS (9.0-12.0)
== END ==
LOC: LAB 08:22
PROVIDERS: Family Medicine
DX: Z86.711 Personal history of pulmonary embolism (principal)

== ENCOUNTER → 2024-05-25 | Outpatient (CLI) | payer MEDICARE ==
[2024-05-25 09:54] LABS: PROTHROMBIN TIME 16.7 SECONDS (9.0-12.0)
== END ==
LOC: LAB 09:05
PROVIDERS: Family Medicine
DX: Z86.711 Personal history of pulmonary embolism (principal)

== ENCOUNTER → 2024-06-01 | Outpatient (CLI) | payer MEDICARE ==
[2024-06-01 09:57] LABS: PROTHROMBIN TIME 22.3 SECONDS (9.0-12.0)
== END ==
LOC: LAB 09:26
PROVIDERS: Family Medicine
DX: Z86.711 Personal history of pulmonary embolism (principal)

== ENCOUNTER → 2024-07-04 | Outpatient (CLI) | payer MEDICARE, OTHER ==
[2024-07-04 08:14] LABS: PROTHROMBIN TIME 22.7 SECONDS (9.0-12.0)
== END ==
LOC: LAB 07:38
PROVIDERS: Family Medicine
DX: Z86.711 Personal history of pulmonary embolism (principal)

== ENCOUNTER → 2024-08-01 | Outpatient (CLI) | payer MEDICARE | LOC: MAMMO 08:23 | DX: Z12.31 Encounter for screening mammogram for malignant neoplasm of breast (principal) ==

== ENCOUNTER → 2024-08-01 | Outpatient (CLI) | payer MEDICARE ==
[2024-08-01 09:10] LABS: PROTHROMBIN TIME 24.8 SECONDS (9.0-12.0)
== END ==
LOC: LAB 08:27
PROVIDERS: Family Medicine
DX: Z86.711 Personal history of pulmonary embolism (principal)

== ENCOUNTER → 2024-08-15 | Outpatient (CLI) | payer MEDICARE ==
[2024-08-15 09:23] LABS: CALCIUM 9.2 mg/dL (8.3-10.5)
[2024-08-16 00:15] LABS: CREATININE OTHER SOURCE 24 mg/dL (63-166)
== END ==
LOC: LAB 08:47
PROVIDERS: Family Medicine
DX: I10 Essential (primary) hypertension (principal)

== ENCOUNTER → 2024-08-29 | Outpatient (CLI) | payer MEDICARE ==
[2024-08-29 08:44] LABS: PROTHROMBIN TIME 22.4 SECONDS (9.0-12.0)
== END ==
LOC: LAB 08:16
PROVIDERS: Family Medicine
DX: Z86.711 Personal history of pulmonary embolism (principal)

== ENCOUNTER → 2024-09-26 | Outpatient (CLI) | payer MEDICARE ==
[2024-09-26 08:44] LABS: PROTHROMBIN TIME 28.6 SECONDS (9.0-12.0)
== END ==
LOC: LAB 08:05
PROVIDERS: Family Medicine
DX: Z86.711 Personal history of pulmonary embolism (principal)

== ENCOUNTER → 2024-10-24 | Outpatient (CLI) | payer MEDICARE ==
[2024-10-24 08:58] LABS: PROTHROMBIN TIME 23.2 SECONDS (9.0-12.0)
== END ==
LOC: LAB 08:35
PROVIDERS: Family Medicine
DX: Z86.711 Personal history of pulmonary embolism (principal)

== ENCOUNTER → 2024-11-23 | Outpatient (CLI) | payer MEDICARE ==
[2024-11-23 09:06] LABS: PROTHROMBIN TIME 28.2 SECONDS (9.0-12.0)
== END ==
LOC: LAB 08:41
PROVIDERS: Family Medicine
DX: Z86.711 Personal history of pulmonary embolism (principal)